=== PATIENT | female | born 1950 | race Hispanic/Latino ===

== ENCOUNTER 2021-01-28 11:39 | Emergency (ER) | payer MEDICARE ==
[~2021-01-28] VITALS: Ht 162.6 cm; Wt 74.8 kg
[2021-01-28] MEDS ORDERED: LIDOCAINE HCL 1% 2 ML AMP INJ ONE (12:15)
[2021-01-28] MEDS ORDERED: BACTRIM DS TAB1 EACH PO (12:48)
[2021-01-28] MEDS ORDERED: KEFLEX125 MG/5 M PO (12:48)
[2021-01-28] MEDS ORDERED: ULTRAM 50MG50 MG PO (12:49)
[2021-01-28 13:19] VITALS: BP 133/75
== END 2021-01-28 13:21 | disposition home or self-care (01) ==
LOC: ER 12:21
DX: L02.31 Cutaneous abscess of buttock (principal); I10 Essential (primary) hypertension; I48.91 Unspecified atrial fibrillation
CPT/HCPCS: 10061; 10160; 99283

== ENCOUNTER → 2024-06-21 | Outpatient (REF) | payer MEDICARE, OTHER ==
[~2024-06-21] MED LIST: BACTRIM DS TAB1 EACH PO; KEFLEX125 MG/5 M PO; ULTRAM 50MG50 MG PO
== END ==
LOC: RAD 13:24
PROVIDERS: ATTEND Internal Medicine Rheumatology
DX: M06.9 Rheumatoid arthritis, unspecified (principal)